=== PATIENT | female | born 1985 | race Caucasian/White ===

== ENCOUNTER 2017-03-11 13:32 | Emergency (ER) | payer BC ==
[2017-03-11 13:36] VITALS: RESP 16
--- NOTE | 2017-03-11 13:51 | EDPHY ---
H & P Stated Complaint: hearing voices, not SI, hx bipolar schizo - Personal History LMP (Females 10-55): Unknown Current Tetanus/Diphtheria Vaccine: Unsure Current Tetanus Diphtheria and Acellular Pertussis (TDAP): Unsure - Medical/Surgical History Hx Asthma: No Hx Chronic Respiratory Disease: No Hx Diabetes: No Hx Cardiac Disease: No Hx Renal Disease: No Hx Cirrhosis: No Hx Alcoholism: No Hx HIV/AIDS: No Hx Splenectomy or Spleen Trauma: No Other PMH: bipolar schizo - Social History Smoking Status: Never smoked Time Seen by Provider: 03/11/17 13:43 HPI/ROS: CHIEF COMPLAINT: "I drove here from [place]" HISTORY OF PRESENT ILLNESS: 32-year-old female states that she drove here from [place] telling her that audio hallucinations told her drive to [place]. She is experiencing further audio hallucinations telling her to kill herself and to kill other people. Denies acute complaints of pain or discomfort. Denies attempt. PRIMARY CARE PROVIDER: in [place] REVIEW OF SYSTEMS: A ten point review of systems was performed and is negative with the exception of the items mentioned in the HPI PAST MEDICAL & SURGICAL HISTORY: Self describes schizophrenia history SOCIAL HISTORY: denies alcohol or drug use PHYSICAL EXAM (Prior to examination, patient consented to physical exam, hands were washed and my usual and customary physical exam procedures followed) 1) GENERAL: Well-developed, well-nourished, alert and oriented. Tearful 2) HEAD: Normocephalic, atraumatic 3) HEENT: Pupils equal, round, reactive to light bilaterally. Sclera anicteric. 4) NECK: Full range of motion, no meningeal signs. 5) LUNGS: Clear auscultation bilaterally, no wheezes, no rhonchi, no retractions. 6) HEART: Regular rate and rhythm, no murmur, no heave, no gallop. 7) ABDOMEN: No guarding, no rebound, no focal tenderness, negative McBurney's, 8) MUSCULOSKELETAL: Moving all extremities, no focal areas of tenderness, no obvious trauma. No peripheral edema or discoloration. 9) BACK: No CVA tenderness, no midline vertebral tenderness, no fluctuance, no step-off, no obvious trauma, no visual or palpable abnormality. 10) SKIN: No rash, no petechiae. 11) Psychiatric: Patient is oriented X 3, there is no agitation. DIFFERENTIAL DIAGNOSIS: in no particular include but limited to schizophrenia , suicidal ideation, homicidal ideation, psychosis (Mary Anne Hernandez Lissett) Constitutional: Initial Vital Signs Temperature (C) 36.5 C 03/11/17 13:34 Heart Rate 96 03/11/17 13:34 Respiratory Rate 16 03/11/17 13:34 Blood Pressure 116/76 03/11/17 13:34 O2 Sat (%) 97 03/11/17 13:34 O2 Delivery Mode Room Air Allergies/Adverse Reactions: No Known Allergies Allergy (Unverified 03/11/17 13:34) Home Medications: Medication Instructions Recorded Abicherylfchristofer 03/11/17 Hydroxyzine Pamoate 03/11/17 Medical Decision Making ED Course/Re-evaluation: 1:55 p.m.: Patient has been placed on M1 hold. She is endorsing suicidal and homicidal ideations. 6:00 p.m. care the patient turned over to Dr. Perdue at this time awaiting mental health evaluation (Mary Anne Hernandez Lissett) The patient was evaluated and managed by the physician's secretary administrative assistant. My cosignature indicates that I reviewed the chart and I agree with the findings and plan of care as documented. I am the secondary supervising physician. 2100: The patient is signed out to Dr. Sevilla at change of shift. Pt is stable. (Juanis Perdue) I took over care of this patient at 9:00 p.m.. This patient is on an M1 hold for suicidal and homicidal ideations. Behavioral Health is currently searching for placement. 11:00 p.m., the patient still awaits placement. His emergency department course under my care has been uneventful. Care turned over to Dr. Connie Vargas at this time. (Trina Sevilla) 5:00 a.m.- The patient has remained stable throughout my shift. She has been accepted to [facility] by Dr. Soto. I have completed the EMTALA form. ( Connie Vargas) - Data Points Laboratory Results: Laboratory Results 03/11/17 14:12 03/11/17 14:12 Departure - Departure Disposition: Other Psych, Not [facility] Clinical Impression: Homicidal ideation, Suicidal ideation Condition: Fair Referrals: NONE *PRIMARY CARE P,. [Primary Care Provider] - As per Instructions
[2017-03-11 14:20] LABS: % IMMATURE GRANULYOCYTES 0.2 % (0.0-1.1); ABSOLUTE IMMATURE GRANULOCYTES 0.01 10^3/uL (0.00-0.10); ADD DIFF? NO; ADD MORPH? NO; ADD SCAN? NO; ATYPICAL LYMPHOCYTE FLAG 0 (0-99); FRAGMENT RBC FLAG 0 (0-99); HEMATOCRIT 34.1 % (38.0-47.0); LEFT SHIFT FLG 0 (0-99); LIPEMIA HEMOLYSIS FLAG 80 (0-99); MEAN CELL HEMOGLOBIN CONCENTR. 32.3 g/dL (32.4-36.7); MEAN CELL VOLUME 83.6 fL (81.5-99.8); MEAN PLATELET VOLUME 9.6 fL (8.7-11.7); PLATELET CLUMPS FLAG 0 (0-99); PLATELET COUNT 307 10^3/uL (150-400); RED BLOOD CELL COUNT 4.08 10^6/uL (4.18-5.33); RED CELL DISTRIBUTION WIDTH 14.1 % (11.5-15.2)
[2017-03-11] MEDS ORDERED: ASPIRIN 81 MG CHEWABLE TAB ONE (14:20)
[2017-03-11 15:04] LABS: ANION GAP 12 mEq/L (8-16); CALCIUM 9.1 mg/dL (8.5-10.4); CARBON DIOXIDE 22 mEq/l (22-31); CHLORIDE 107 mEq/L (97-110); CREATININE 0.7 mg/dL (0.6-1.0); ETHANOL SERUM < 10 mg/dL (0-10); GLOMERULAR FILTRATION RATE > 60; GLUCOSE 100 mg/dL (70-100); POTASSIUM 3.9 mEq/L (3.5-5.2); SALICYLATE < 1.0 mg/dL (2.0-20.0); SODIUM 141 mEq/L (134-144)
[2017-03-11 23:11] VITALS: O2SAT 96
[2017-03-12 05:18] VITALS: BP 120/74; PULSE 54; TEMP 97.5
== END 2017-03-12 07:44 ==
DX: R45.851 Suicidal ideations (principal); R45.850 Homicidal ideations
CPT/HCPCS: 80305; G0480